=== PATIENT | female | born 1960 | race Caucasian/White ===

== ENCOUNTER 2018-08-05 06:31 | Day surgery (SDC) | payer OTHER ==
[2018-08-04 15:33] VITALS: BMI 37.4
[2018-08-05] MEDS ORDERED: PROPOFOL 20 ML ONE ×2 (07:00→10:47)
[2018-08-05] MEDS ORDERED: fentaNYL CITRATE 250 MCG/5 ML VIAL ONE (07:00)
[2018-08-05] MEDS ORDERED: SUCCINYLCHOLINE CHLORIDE 200 MG/10 ML VIAL ONE (07:01)
[2018-08-05] MEDS ORDERED: LIDOCAINE HCL/PF 2% SDV 5ML VIAL ONE (07:01)
[2018-08-05] MEDS ORDERED: DEXAMETHASONE SOD PHOSPHATE 4 MG/1 ML VIAL ONE (07:01)
[2018-08-05] MEDS ORDERED: ROCURONIUM BROMIDE 50 MG/5 ML VIAL ONE ×2 (07:01→10:13)
[2018-08-05] MEDS ORDERED: GENTAMICIN SO4 80 MG/2 ML VIAL ONE (07:31)
[2018-08-05] MEDS ORDERED: DEXAMETHASONE SOD PHOSPHATE/PF 10 MG/ML SDV ONE (07:41)
[2018-08-05] MEDS ORDERED: BUPIVACAINE HCL/PF 0.25% (2.5MG/ML) 10 ML VIAL ONE (07:41)
[2018-08-05] MEDS ORDERED: ROPIVACAINE HCL 0.5% 30ML VIAL ONE (07:42)
[2018-08-05] MEDS ORDERED: MIDAZOLAM HCL 2 MG/2 ML SINGLE DOSE VIAL ONE ×2 (07:43)
--- NOTE | 2018-08-05 08:43 | HP ---
Satellite [facility] - Chief Complaint Chief Complaint: Morbid obesity History Source: Patient Limitations to Obtaining History: No Limitations - Past Medical History Allergies/Adverse Reactions: Allergies Allergy/AdvReac Type Severity Reaction Status Date / Time No Known Allergies Allergy Verified 08/05/18 07:11 Pulmonary: Yes: Sleep Apnea ...LMP: 02/15/16 - Current Medications Current Medications: Home Medications Medication Instructions Recorded Levothyroxine [Synthroid -] 75 mcg PO DAILY 08/04/18 Satellite Physical Exam - Physical Examination Vital Signs: Vital Signs Period Temp Pulse Resp BP Sys/Aden Pulse Ox Last 24 Hr 98.1 F 83 16 124/74 97 General Appearance: Well Nourished, Well Developed Lung: Clear to auscultation Heart: Regular rate & rhythm Abdomen: Soft Neurological: Alert, Oriented Satellite Impression/Plan - Impression/Plan Impression: Morbid obesity, sleep apnea, BMI 37.4 Operative Procedure: Laparoscopic possible open gastric badn placement, EGD possible liver biopsy Date to be Performed: 08/05/18
[2018-08-05] MEDS ORDERED: ceFAZolin SODIUM 1 GM VIAL IVPB ONE ×2 (09:05→09:15)
[2018-08-05] MEDS ORDERED: ceFAZolin SODIUM 1 GM VIAL ONE (09:06)
[2018-08-05] MEDS ORDERED: SODIUM CHLORIDE 0.9% P/F 10 ML VIAL IJ ONE (09:11)
[2018-08-05] MEDS ORDERED: BUPIVACAINE HCL/PF 0.25% (2.5MG/ML) 10 ML VIAL IJ ONE ×2 (10:30→10:45)
[2018-08-05] MEDS ORDERED: PHENYLEPHRINE HCL 10 MG/1 ML SINGLE DOSE VIAL ONE (10:43)
[2018-08-05] MEDS ORDERED: NEOSTIGMINE METHYLSULFATE 0.5 MG/ML - 10 ML MDV ONE (10:45)
[2018-08-05] MEDS ORDERED: GLYCOPYRROLATE 0.2 MG/1 ML VIAL ONE (10:46)
[2018-08-05] MEDS ORDERED: ONDANSETRON 4 MG/2 ML VIAL IVPUSH PRN (10:53)
--- NOTE | 2018-08-05 10:53 | OP ---
Operative Note - Note: Operative Date: 08/05/18 Pre-Operative Diagnosis: Morbid obesity. BMI 37.4. Obstructive sleep apnea Operation: Laparoscopic gastric band placement, wedge liver biopsy, EGD Implants: Large AP Lap Band Post-Operative Diagnosis: Other (Same as preop as well as hepatomegaly) Surgeon: Max Davis Warp Worker: Liz Powell Anesthesia: General Specimens Removed: Wedge liver biopsy Estimated Blood Loss (mls): 30 Drains & Tubes with Location: OGT Operative Report Dictated: Yes
[2018-08-05] MEDS ORDERED: SODIUM CHLORIDE 1,000 ML IV SCH (11:00)
--- NOTE | 2018-08-05 11:38 | SPEC ---
DATE OF OPERATION: 08/05/2018 SURGEON: Max Davis MD BUYER GRAIN: GWYN Edmonds PREOPERATIVE DIAGNOSES: 1. Morbid obesity. 2. Body mass index 37.4. 3. Obstructive sleep apnea. POSTOPERATIVE DIAGNOSES: 1. Morbid obesity. 2. Body mass index 37.4. 3. Obstructive sleep apnea. 4. Hepatomegaly. PROCEDURE: 1. Diagnostic laparoscopy. 2. Laparoscopic placement of gastric band. 3. Laparoscopic wedge liver biopsy. 4. Upper endoscopy/esophagogastroduodenoscopy. SPECIMEN: Liver biopsy. ESTIMATED BLOOD LOSS: 30 mL DRAINS: None. ANESTHESIA: General endotracheal. OG tube placed by Anesthesia. Large lap AP band placed. REASON FOR PROCEDURE: This is a 57-year-old female who presents for weight loss options. After describing different options, she decided to proceed with laparoscopic gastric band placement, possible liver biopsy and possible endoscopy. The risks and benefits of the procedure were explained. RISKS AND BENEFITS: After describing the different options for weight loss management, the patient decided to proceed with a laparoscopic, possible open, gastric band placement for gastric restriction. The patient was seen by the respective subspecialties and cleared for surgery. The risks and benefits of the procedure were explained. These included bleeding, infection, hernia, NH, DVT, PE, injury to surrounding structures including the liver, colon, bowel, spleen, esophagus, vessel injury, nerve injury, weight regain, obstruction, gastric band slip, gastric band erosion, port site slip, port site infection, vitamin deficiency, hair loss, and as some of the possible complications. The patient understood and signed informed consent. DESCRIPTION OF PROCEDURE: The patient was placed supine on the operating room table. The patient underwent general endotracheal intubation. The arms were brought out at 90 degrees and secured. A footboard was placed and the legs were secured laterally with padding. The abdomen was prepped and draped in the usual sterile fashion. A time-out was performed. An incision was made in the left upper quadrant and a Veress needle inserted. Pneumoperitoneum was established. The Veress needle was then removed and a 5-mm trocar inserted. Inspection of the abdominal cavity was then performed with the laparoscopic camera. Subsequently, in the right upper quadrant to the right of midline, a 15-mm trocar was inserted under direct visualization. A 5-mm trocar was placed further laterally in the right upper quadrant and a 5-mm trocar placed below the left costal margin. A stab wound was made in the subxiphoid area and a Dahlia clamp inserted and removed to dilate the tract. A Nhi liver retractor was inserted. The post was secured at the bedside by the nursing staff. The patient was placed in steep reverse Trendelenburg position, and the Nhi liver retractor was used to secure the liver towards the anterior abdominal wall. The fundus of the stomach was noted and grasped towards the patient's right side and caudad. The omentum was also retracted downward as well. Electrocautery was used to score the peritoneum over the left esophagogastric junction freeing this area until the left manjit of the diaphragm was noted. The stomach was then pulled laterally to the patients left side, and the caudate lobe of the liver was identified. The pars flaccida was identified, and an opening created within it. The right manjit of the diaphragm was noted. The caudate lobe of the liver was retracted, and the inferior vena cava was noted to be away from the field. The peritoneum anterior to the right manjit was scored with electrocautery, and a laparoscopic dissector was used to gently make a tunnel from the right to the left manjit until it was free in the left upper quadrant of the abdomen. The gastric band was then chosen and prepped by the mechanical manufacturing technician. This was then placed within the abdominal cavity. The band tubing was placed into the laparoscopic dissector, which was pulled and withdrawn to the patients right side. The band tubing was placed within the band buckle and secured, securing the band around the stomach. The band was noted to be in good position and not too tight around the stomach. The stomach was then imbricated over the band. An Endo Stitch was used to grab the body of the stomach and secure it to itself, imbricating the stomach over the band. Hemostasis was noted. The band tubing was then brought out of the 15-mm trocar. In addition, an upper endoscopy was performed. The endoscope was placed into the patients mouth. The entirety of the esophagus, GE junction and stomach were inspected. No obstruction or leak was noted. The stomach was suctioned and the endoscope removed fully intact. A wedge liver biopsy was then performed. The left lobe of the liver was identified. A portion of the edge of the left lobe of the liver was grasped. Using electrocautery, a wedge of the left liver was excised. The specimen was removed and sent off the field. Hemostasis of the wedge liver biopsy site was attained and noted using electrocautery. The Nhi liver retractor was removed under direct visualization. Pneumoperitoneum was desufflated and all trocars removed. The skin at the 15-mm trocar site was extended, and dissection continued until the anterior fascia was identified. Four 2-0 Prolene sutures were placed in the fascia. The end of the band tubing was cut and removed and sent off the field. The port was secured to the band tubing. The port was secured to the fascia using the four 2-0 Prolene sutures. Hemostasis was again noted. Antibiotic irrigation was placed within all incision sites and Marcaine was injected at all incision sites. A 3-0 Vicryl suture was used to close the deep subcutaneous tissue at this area, and 4-0 Biosyn sutures were used to close all incision sites. Sterile dressings were applied. The patient tolerated the procedure well and was transferred to the recovery room in stable condition. In addition, an upper endoscopy was performed to evaluate the stomach. No leak , no obstruction was noted. The stomach was suctioned and the scope removed. Patient tolerated the procedure well, returned to the recovery room in stable condition. Jyoti [id number] MTDD
[2018-08-05 11:55] LABS: HEMATOCRIT 39.8 % (32.4-45.2); HEMOGLOBIN 13.1 GM/dL (10.7-15.3); MCH 28.3 pg (25.7-33.7); MCHC 32.9 g/dl (32.0-36.0); MEAN CELL VOLUME 85.9 fl (80-96); MEAN PLT VOLUME 8.7 fl (7.5-11.1); PLATELET COUNT 168 K/MM3 (134-434); RBC 4.64 M/mm3 (3.60-5.2); RDW 13.6 % (11.6-15.6); WHITE BLOOD COUNT 5.4 K/mm3 (4.0-10.0)
[2018-08-05 12:30] LABS: ANION GAP 6 MMOL/L (8-16); BLOOD UREA NITROGEN 12 mg/dL (7-18); CALCIUM 8.4 mg/dL (8.5-10.1); CHLORIDE 107 mmol/L (98-107); CO2 27 mmol/L (21-32); CREATININE 0.8 mg/dL (0.55-1.3); GLUCOSE,RANDOM 165 mg/dL (74-106); SODIUM 140 mmol/L (136-145)
[2018-08-05] MEDS ORDERED: HYDROmorphone HCl 2 MG/ML VIAL IVPB PRN (13:07)
[2018-08-05] MEDS ORDERED: HYDROmorphone HCl 2 MG/ML VIAL ONE (13:10)
[2018-08-05] MEDS ORDERED: HYDROmorphone HCl 2 MG/ML VIAL IVPUSH ONE (13:15)
[2018-08-05] MEDS ORDERED: ENOXAPARIN NA (PORCINE) 40 MG/0.4 ML DISP.SYRIN SQ ONE (14:00)
[2018-08-05] MEDS: SODIUM CHLORIDE 1,000 ML IV SCH (17:50)
[2018-08-05] MEDS: oxyCODONE HCL 5 MG TABLET PO SCH ×2 (19:49→22:30)
[2018-08-05] MEDS: ACETAMINOPHEN 325 MG TABLET (FP) PO SCH ×2 (19:50→22:30)
[2018-08-05] MEDS: FAMOTIDINE 20 MG/50 ML IVPB 20 MG/50 ML MG IVPB SCH (21:44)
[2018-08-06] MEDS ORDERED: ACETAMINOPHEN 325 MG TABLET (FP) PO ONE (00:30)
[2018-08-06] MEDS ORDERED: oxyCODONE HCL 5 MG TABLET PO ONE (00:30)
[2018-08-06] MEDS: SODIUM CHLORIDE 1,000 ML IV SCH (04:07)
[2018-08-06] MEDS: oxyCODONE HCL 5 MG TABLET PO SCH ×3 (04:56→10:23)
[2018-08-06] MEDS: ACETAMINOPHEN 325 MG TABLET (FP) PO SCH ×3 (04:56→10:24)
[2018-08-06] MEDS ORDERED: LEVOTHYROXINE NA 75 MCG TABLET (FP) PO SCH (07:00)
--- NOTE | 2018-08-06 07:24 | SURG ---
Surgery Foreman Or Supervisor And Operator Note Foreman Or Supervisor And Operator: Liz Powell PA-C Date of Service: 08/06/18 Diagnosis: Morbid obesity. BMI 37.4. Obstructive sleep apnea Procedure: Laparoscopic gastric band placement, wedge liver biopsy, EGD I was present for the entirety of the operative procedure. For further detail, please refer to operative report. Visit type - Case Type Case Type: Scheduled - Emergency Emergency Visit: No - New patient This patient is new to me today: Yes Date on this admission: 08/05/18
--- NOTE | 2018-08-06 09:11 | PN ---
Progress Note (short form) - Note Progress Note: 57yo F s/p lap band placement POD #1, pt seen and examined at bedside. Pt complains of abd pain and gas pain, but that it is improved with pain medications. Pt states that she is tolerating her clears. Pt ambulating and urinating well. Last Vital Signs Temp Pulse Resp BP Pulse Ox 98.3 F 85 20 132/75 93 L 08/06/18 05:00 08/06/18 05:00 08/06/18 05:00 08/06/18 05:00 08/05/18 23:22 CBC, BMP 08/05/18 11:30 08/05/18 11:30 PE: Gen: A&O x3 Resp: breathing comfortably Abd: soft, nondistended, mild tenderness, incisions are clean with no erythema or discharge. Ext: no edema <Parker Perea - Last Filed: 08/06/18 08:38> - Note Progress Note: POD 1 Lap Gastric band placement Pain controlled No nausea UGI: no leak/obstruction Tolerating clears Abd soft, dressings intact Discharge home Follow up in 2 weeks <Max Davis - Last Filed: 08/06/18 10:12> Problem List - Problems (1) Morbid obesity due to excess calories Assessment/Plan: Plan -continue pain management -bariatric diet -OOB/ambulate -DVT ppx -will consider discharge later today Code(s): E66.01 - MORBID (SEVERE) OBESITY DUE TO EXCESS CALORIES <Parker Perea - Last Filed: 08/06/18 08:38>
[2018-08-06] MEDS: FAMOTIDINE 20 MG/50 ML IVPB 20 MG/50 ML MG IVPB SCH (10:23)
[2018-08-06 10:28] VITALS: BP 115/52; PULSE 84; TEMP 87.6
--- NOTE | 2018-08-07 09:36 | PATH ---
Surgical Pathology Report Patient Name: DANIEL ALLRED Med. Rec. #: [id number] /Age/Gender: 1960 (Age: 57) / F Account: [id number] Location: AMBULATORY SURG Taken: 08/05/2018 Received: 08/05/2018 Reported: 08/07/2018 Physicians: Max Davis M.D. Specimen(s) Received LIVER BIOPSY Clinical History Morbid obesity Final Diagnosis LIVER, BIOPSY: MODERATE STEATOSIS (~40%), CONSISTENT WITH FATTY LIVER DISEASE. TRICHROME STAIN SHOWS NO SIGNIFICANT FIBROSIS. IRON STAIN IS NEGATIVE FOR SIDEROSIS. SEE COMMENT. Comment: Histologic sections shows patchy moderate micro and macrovesicular steatosis (~40%). Fatty liver may be associated with diabetes mellitus, metabolic syndromes, obesity, medications, alcohol use, etc. Suggest clinical and laboratory correlation. Electronically Signed Brooklynn Sullivan M.D. Gross Description Received in formalin labeled "liver biopsy," is a 3.0 x 1.7 x 0.6 cm chase portion of soft tissue, consistent with a portion of liver. The specimen is sectioned and insurance claims representative sections are submitted in one cassette. saudi/08/05/2018
== END 2018-08-06 14:04 | disposition home or self-care (01) ==
LOC: JASU-SURG 06:31 → JASUSAT 06:31 → J5S 15:05 → JASUSAT 08-06 14:04
PROVIDERS: ATTEND Surgery
PROC: 0DV64CZ Restriction of Stomach with Extraluminal Device, Percutaneous Endoscopic Approach (ICD-10-PCS; principal; 2018-08-05 08:30)
PROC: 0DJ08ZZ Inspection of Upper Intestinal Tract, Via Natural or Artificial Opening Endoscopic (ICD-10-PCS; 2018-08-05 08:30)
PROC: 0FB04ZX Excision of Liver, Percutaneous Endoscopic Approach, Diagnostic (ICD-10-PCS; 2018-08-05 08:30)
DX: E66.01 Morbid (severe) obesity due to excess calories (principal); Z68.37 Body mass index [BMI] 37.0-37.9, adult; G47.33 Obstructive sleep apnea (adult) (pediatric)
CPT/HCPCS: 43770; 47379; L8699; 36415; 74241-TC-FY; 80048; 85027; 86850; 86900; 86901; 88307-TC; 88313-TC; 94010; 94760; J7030

== ENCOUNTER 2019-02-19 18:54 | Emergency (ER) | payer OTHER ==
[2019-02-19 19:11] VITALS: BP 136/75; PULSE 85; TEMP 98; BMI 34.3
--- NOTE | 2019-02-19 19:15 | PDOC ---
Rapid Medical Evaluation Chief Complaint: Lightheaded Time Seen by Provider: 02/19/19 19:10 Medical Evaluation: Allergies Allergy/AdvReac Type Severity Reaction Status Date / Time No Known Allergies Allergy Verified 02/19/19 19:11 Vital Signs Temp Pulse Resp BP Pulse Ox 98.0 F 85 16 136/75 97 02/19/19 19:07 02/19/19 19:07 02/19/19 19:07 02/19/19 19:07 02/19/19 19:07 02/19/19 19:12 I have performed a brief in-person evaluation of this patient. The patient presents with a chief complaint of: h/o gastric band in last july present with complains of intermittent epigastric discomfort which has been going on for weeks now but started having dizziness and blurry vision an hour ago. Denies LOC, syncope, CP, SOB Pertinent physical exam findings: A&O x 3 in NAD. heart RRR I have ordered the following: CBC, CMP, EKG, cardiac profle The patient will proceed to the ED for further evaluation. Discharge Disposition - Diagnosis Light headedness - Discharge Dispostion Condition at time of disposition: Stable - Referrals - Patient Instructions - Post Discharge Activity
[2019-02-19] MEDS ORDERED: SODIUM CHLORIDE 1,000 ML IV STA (19:35)
--- NOTE | 2019-02-19 19:44 | PDOC ---
History of Present Illness - General Chief Complaint: Lightheaded Stated Complaint: LIGHTHEADED Time Seen by Provider: 02/19/19 19:10 - History of Present Illness Initial Comments: 02/19/19 20:18 The patient is a 58 year old female with a history of hypothyroidism, obesity who presents for evaluation of lightheadedness. The patient notes that she had a gastric band placed in 07/2018 and has been having fluid added to the band minimally since then. However 3 weeks ago she states that her surgeon added more fluid than usual per the patient's request. She notes that since then, she has been eating significantly less and today began feeling lightheaded when standing prompting her presentation to the ED for further evaluation. She notes a strange sensation in her epigastrium where the gastic band is located, but otherwise denies fevers, chills, SOB, chest pain, nausea, vomiting, abdominal pain, or changes with urination or bowel movements. Past History - Past Medical History Allergies/Adverse Reactions: Allergies Allergy/AdvReac Type Severity Reaction Status Date / Time No Known Allergies Allergy Verified 02/19/19 19:11 Home Medications: Ambulatory Orders Levothyroxine [Synthroid -] 75 mcg PO DAILY 08/04/18 Docusate Sodium [Colace -] 100 mg PO TID #90 capsule 08/05/18 Famotidine [Pepcid] 20 mg PO BID #60 tablet 08/05/18 Oxycodone HCl/Acetaminophen [Percocet 5-325 mg Tablet] 1 - 2 tab PO Q6H #28 tab MDD 4 08/05/18 COPD: No - Surgical History Abdominal Surgery: Yes (LAP BAND JUL 2019) - Suicide/Smoking/Psychosocial Hx Smoking History: Never smoked Have you smoked in the past 12 months: No If you are a former smoker, when did you quit?: 1994 Hx Alcohol Use: No Drug/Substance Use Hx: No Substance Use Type: None Hx Substance Use Treatment: No Review of Systems - Review of Systems Comments:: 02/19/19 20:23 Constitutional: No fevers, chills, fatigue, malaise HEENT: No Rhinorrhea, nasal congestion, visual changes Cardiovascular: Lightheadedness. No chest pain, syncope, palpitations, Respiratory: No Cough, SOB, Hemoptysis, Gastrointestinal: No Abdominal pain, Nausea, Vomiting, Constipation, Diarrhea, Melena Genitourinary: No Dysuria, Frequency, Urgency, Hesitancy, Hematuria, Flank pain Musculoskeletal: No Myalgia, arthralgia Skin: No rashes, itching, bruising, pallor Neurologic: No Headache, Dizziness, Numbness, Weakness, or Tingling Psychiatric: No Hallucinations. No SI or HI *Physical Exam - Vital Signs Last Vital Signs Temp Pulse Resp BP Pulse Ox 98.0 F 85 16 136/75 97 02/19/19 19:07 02/19/19 19:07 02/19/19 19:07 02/19/19 19:07 02/19/19 19:07 - Physical Exam Comments: 02/19/19 20:24 General Appearance: Nourished. No Apparent Distress HEENT: EOMI, MICHAEL. No Pharyngeal Erythema, Tonsillar Exudate, Tonsillar Erythema Neck: No Cervical Lymphadenopathy Respiratory/Chest: Lungs Clear, Normal Breath Sounds. No Crackles, Rales, Rhonchi, Wheezing Cardiovascular: Regular Rhythm, Regular Rate. No Murmur, Gallops, Rubs Gastrointestinal/Abdominal: Normal Bowel Sounds, Soft. No Guarding, Rebound, Tenderness Musculoskeletal: No CVA Tenderness Extremity: Normal Capillary Refill Integumentary: Normal Color, Dry, Warm Neurologic: Fully Oriented, Alert, Normal Mood/Affect, Normal Response, Heart Score/ECG Review #1 ECG reviewed & interpreted by me at: 20:26 02/19/19 20:26 Normal Sinus Rhythm No Acute ST Changes HR 72 QRS 86 QTc 446 ED Treatment Course - LABORATORY CBC & Chemistry Diagram: 02/19/19 19:45 02/19/19 19:45 Medical Decision Making - Medical Decision Making 02/19/19 20:27 The patient is a 58 year old female with a history of hypothyroidism, obesity who presents for evaluation of lightheadedness. Given the patient's history and physical, it is likely the patient's symptoms are due to dehydration from her gastric band being over inflated. However, we will obtain a cbc, cmp, troponin, mag, lipase, ekg to evaluate further. We will treat with iv fluids, pepcid, and continue to monitor and reassess while here in the ED. 02/19/19 21:34 CBC, cmp, troponin, mag, lipase are unremarkable. The patient was reassessed and reports improvement in their symptoms. We discussed the case with the patient's surgeon Dr. Davis who is aware of the patient with will follow up with her tomorrow to remove fluid from the patient's gastric band. We are comfortable discharging the patient home in stable condition. Patient and family made aware of impression and plan, return precautions discussed including but not limited to worsening pain or symptoms, fevers, or signs of infection, chest pain, respiratory distress, inability to tolerate oral intake, dehydration, syncope, or neurologic changes. The patient is to follow up with PMD and specialist as recommended within 1 week, follow up information provided and the patient will call for an appointment. The patient is to take medications as instructed for duration of time and continue with supportive care , avoid triggers and precipitants. Patient is safe for outpatient follow-up. *DC/Admit/Observation/Transfer Diagnosis at time of Disposition: Light headedness - Discharge Dispostion Disposition: HOME Condition at time of disposition: Stable - Referrals Referrals: Sylvia Reynoso MD [Primary Care Provider] - Max Davis MD [Staff Physician] - - Patient Instructions Printed Discharge Instructions: DI for Dehydration -- Adult Additional Instructions: 1) Please follow-up with your primary care doctor in the next 2-3 days. Please call tomorrow to schedule a follow up appointment. If you cannot follow up with your doctor within 1 week please return to the Emergency Department for any urgent issues. 2) Your laboratory / EKG results were normal here in the ER. You are to follow up with Dr. Davis tomorrow to have your Gastric Band Adjusted. 3) If you have any worsening of symptoms or any other concerns please return to the ER immediately. Return if worsening symptoms including fevers, headache, vomiting, visual or hearing disturbances, abdominal pain, chest pain, shortness of breath, syncope, dehydration, inability to take things by mouth/vomiting, altered mental status, or worsening concerning symptoms. 4) Please continue taking your home medications as directed. - Post Discharge Activity
[2019-02-19] MEDS ORDERED: FOLIC ACID INJECTION - 1 MG, THIAMINE HCL 100 MG, MULTIVIT INJECTION ADULT 10 ML in SOD... IVPB ONE (20:11)
[2019-02-19 20:13] LABS: BASO % 1.1 % (0-2.0); EOS % 2.9 % (0-4.5); HEMATOCRIT 38.5 % (32.4-45.2); HEMOGLOBIN 12.7 GM/dL (10.7-15.3); LYMPH % 33.3 % (8-40); MCH 28.5 pg (25.7-33.7); MEAN CELL VOLUME 86.3 fl (80-96); MEAN PLT VOLUME 8.5 fl (7.5-11.1); MONO % 7.2 % (3.8-10.2); NEUT % 55.5 % (42.8-82.8); PLATELET COUNT 187 K/MM3 (134-434); RBC 4.46 M/mm3 (3.60-5.2); RDW 13.5 % (11.6-15.6); WHITE BLOOD COUNT 4.3 K/mm3 (4.0-10.0)
[2019-02-19] MEDS ORDERED: FAMOTIDINE 20 MG/50 ML IVPB 20 MG/50 ML MG IVPB ONE ×2 (20:30)
[2019-02-19 20:42] LABS: ALBUMIN 4.1 g/dl (3.4-5.0); ALK PHOS 74 U/L (45-117); ANION GAP 6 MMOL/L (8-16); BILIRUBIN,TOTAL 0.4 mg/dL (0.2-1); BLOOD UREA NITROGEN 12 mg/dL (7-18); CALCIUM 9.2 mg/dL (8.5-10.1); CHLORIDE 108 mmol/L (98-107); CO2 27 mmol/L (21-32); CREATININE 0.9 mg/dL (0.55-1.3); GLUCOSE,RANDOM 94 mg/dL (74-106); LIPASE 371 U/L (73-393); MAGNESIUM 2.3 mg/dL (1.8-2.4); POTASSIUM 4.2 mmol/L (3.5-5.1); SGOT/AST 13 U/L (15-37); SGPT/ALT 25 U/L (13-61); SODIUM 141 mmol/L (136-145); TOT PROT 7.1 g/dl (6.4-8.2)
--- NOTE | 2019-02-19 20:48 | PDOC ---
Documentation entered by Blanca Bonilla SCRIBE, acting as scribe for Sonia Dc DO. Sonia Dc DO: This documentation has been prepared by the Chad saucedo Daisy, SCRIBE, under my direction and personally reviewed by me in its entirety. I confirm that the documentation accurately reflects all work, treatment, procedures, and medical decision making performed by me. Attending Attestation - Resident Resident Name: Florentin Meeks - ED Attending Attestation I have performed the following: I have examined & evaluated the patient, The case was reviewed & discussed with the resident, I agree w/resident's findings & plan - HPI HPI: 02/19/19 20:13 The patient is a 58YOF with a history of gastric lap band in July who presents today for intermittent epigastric pain and 1-2 episodes of NB,NB vomit daily for the past [address] Davis, reports that 3 weeks ago he added fluid to the gastric lap band to improve results, but the patient admits to intermittent epigastric pain since. Dr. Davis will see her in his office soon to remove some of the fluid. Denies CP, SOB, LOC, urinary symptoms, or changes in bowel movements. Allergies: NKDA - Physicial Exam PE: 02/19/19 20:35 ADULT PHYSICAL EXAM Constitutional: Awake, alert, oriented. Cardiovascular: Regular rate. Regular rhythm. S1, S2 regular. Distal pulses are 2+ and symmetric. Pulmonary/Chest: No evidence of respiratory distress. Clear to auscultation bilaterally No wheezing, rales or rhonchi. Abdominal: Soft and non-distended. (+) mildly tender over the lap band incision site. Musculoskeletal: No edema. Full range of motion in all extremities. No calf tenderness. Skin: Skin is warm and dry. Neurological: Alert and oriented to person, place, and time. Cranial nerves II -XII are grossly intact. - Medical Decision Making 02/19/19 20:45 I, Dr. Sonia Dc DO, attest that this document has been prepared under my direction and personally reviewed by me in its entirety. I further attest, that it accurately reflects all work, treatment, procedures and medical decision -making performed by me. 02/19/19 20:45 a/p: 58yo female with gastric band surgery by Dr. Davis in July who had the band inflated 3 weeks ago -since inflation has had n/v daily and decreased po intake -pt c/o dizziness recently -concern for electrolyte abnl and dehydration -will send labs, ivf hydration -no cp/sob -pt is nontoxic in appearance -mild ttp over the band, but no peritonitic or acute abd pain -states has had pain over the band since surgery as under surgical incision site -will monitor and reassess 02/19/19 21:42 labs reviewed pt tolerated po will follow up with Dr. Davis in the AM for decreasing gastric band resident discussed labs with Dr. Davis stable for dc to home Heart Score/ECG Review - ECG Intrepretation Comment:: 02/19/19 20:47 sinus at 72, 1st degree av block, nl axis, nl interval no acute st/t wave findings
--- NOTE | 2019-02-20 14:56 | EKG ---
Test Reason : Blood Pressure : / mmHG Vent. Rate : 072 BPM Atrial Rate : 072 BPM P-R Int : 200 ms QRS Dur : 086 ms QT Int : 408 ms P-R-T Axes : 041 026 034 degrees QTc Int : 446 ms NORMAL SINUS RHYTHM SEPTAL INFARCT , AGE UNDETERMINED ABNORMAL ECG WHEN COMPARED WITH ECG OF 27-AUG-2005 01:33, SEPTAL INFARCT IS NOW PRESENT Confirmed by JUAN PICKARD MD ([id number]) on 02/20/2019 2:55:49 PM Referred By: Confirmed By:JUAN PICKARD MD
== END 2019-02-19 21:54 | disposition home or self-care (01) ==
LOC: JER 18:54
DX: R42 Dizziness and giddiness (principal); E03.9 Hypothyroidism, unspecified; E66.9 Obesity, unspecified; Z68.34 Body mass index [BMI] 34.0-34.9, adult; Z98.84 Bariatric surgery status
CPT/HCPCS: 36415; 80053; 82550; 83690; 83735; 84484; 85025; 93005; 93010; 99283-25; J7030

== ENCOUNTER 2020-11-14 06:08 | Day surgery (SDC) | payer OTHER ==
[2020-11-08 12:58] VITALS: BMI 31.7
[2020-11-14] MEDS ORDERED: LIDOCAINE HCL/PF 2% SDV 5ML VIAL ONE (07:32)
[2020-11-14] MEDS ORDERED: ceFAZolin SODIUM 1 GM VIAL ONE (07:32)
[2020-11-14] MEDS ORDERED: DEXAMETHASONE SOD PHOSPHATE 4 MG/1 ML VIAL ONE (07:32)
[2020-11-14] MEDS ORDERED: ONDANSETRON 4 MG/2 ML VIAL ONE ×2 (07:32→10:05)
[2020-11-14] MEDS ORDERED: BUPIVACAINE HCL/PF 0.25% (2.5MG/ML) 10 ML VIAL ONE (07:32)
[2020-11-14] MEDS ORDERED: fentaNYL CITRATE 250 MCG/5 ML VIAL ONE (07:33)
[2020-11-14] MEDS ORDERED: ROCURONIUM BROMIDE 50 MG/5 ML SYRINGE ONE (07:33)
[2020-11-14] MEDS ORDERED: MIDAZOLAM HCL 2 MG/2 ML SINGLE DOSE VIAL ONE (07:33)
[2020-11-14] MEDS ORDERED: PROPOFOL 20 ML ONE ×2 (07:34)
[2020-11-14] MEDS ORDERED: SUCCINYLCHOLINE CHLORIDE 200 MG/10 ML SYRINGE ONE ×2 (07:34→09:56)
[2020-11-14] MEDS ORDERED: GLYCOPYRROLATE 0.2 MG/1 ML VIAL ONE ×2 (07:38→08:40)
[2020-11-14] MEDS ORDERED: NEOSTIGMINE METHYLSULFATE 0.5 MG/1 ML - 10 ML MDV ONE (08:40)
[2020-11-14] MEDS ORDERED: ONDANSETRON 4 MG/2 ML VIAL IVPUSH PRN ×2 (08:51→09:37)
[2020-11-14] MEDS ORDERED: LACTATED RINGERS SOLUTION 1,000 ML IV SCH (09:00)
[2020-11-14] MEDS ORDERED: BUPIVACAINE HCL/PF 0.25% (2.5MG/ML) 10 ML VIAL IJ ONE ×2 (09:01→09:22)
[2020-11-14] MEDS ORDERED: oxyCODONE HCL 5 MG TABLET PO PRN (09:37)
[2020-11-14] MEDS ORDERED: SODIUM CHLORIDE 1,000 ML IV SCH (09:45)
[2020-11-14] MEDS ORDERED: FAMOTIDINE 20 MG/50 ML IVPB 20 MG/50 ML MG IVPB SCH (10:00)
[2020-11-14] MEDS ORDERED: LEVOTHYROXINE NA 75 MCG TABLET (FP) PO SCH (10:00)
[2020-11-14 10:40] LABS: CALCIUM 8.4 mg/dl (8.5-10); CREATININE 0.7 mg/dl (0.55-1.3); HEMATOCRIT 37.6 % (32.4-45.2); HEMOGLOBIN 12.2 GM/dl (10.7-15.3); MCH 28.5 pg (25.7-33.7); MCHC 32.5 g/dl (32.0-36.0); MEAN CELL VOLUME 87.9 fl (80-96); MEAN PLT VOLUME 8.9 fl (7.5-11.1); PLATELET COUNT 225 K/MM3 (134-434); POTASSIUM 4.7 mmol/L (3.5-5.1); RBC 4.27 M/mm3 (3.60-5.2); RDW 13.7 % (11.6-15.6)
[2020-11-14 10:58] VITALS: TEMP 98.1
[2020-11-14] MEDS ORDERED: LOCK ITEM NR ONE (11:00)
[2020-11-14] MEDS ORDERED: ENOXAPARIN NA (PORCINE) 40 MG/0.4 ML DISP.SYRIN SQ ONE ×2 (11:43→12:00)
[2020-11-14] MEDS ORDERED: FAMOTIDINE 20 MG/50 ML IVPB 20 MG/50 ML MG IVPB ONE (11:43)
[2020-11-14] MEDS ORDERED: FAMOTIDINE 20 MG PREMIXED IVPB IVPB ONE (11:45)
[2020-11-14] MEDS ORDERED: oxyCODONE HCL 5 MG TABLET ONE (11:50)
[2020-11-14 12:03] VITALS: PULSE 64
[2020-11-14 12:24] VITALS: BP 128/75
== END 2020-11-14 13:40 | disposition home or self-care (01) ==
LOC: FASU 06:08 → EDSTATUS 08:00 → FASU 13:40
PROVIDERS: ATTEND Surgery
PROC: 0DP64YZ Removal of Other Device from Stomach, Percutaneous Endoscopic Approach (ICD-10-PCS; principal; 2020-11-14 08:36)
DX: T85.848A Pain due to other internal prosthetic devices, implants and grafts, initial encounter (principal); R11.2 Nausea with vomiting, unspecified; K66.0 Peritoneal adhesions (postprocedural) (postinfection)
CPT/HCPCS: 36415; 80048; 85027; 94760

== ENCOUNTER 2023-10-07 14:32 | Emergency (ER) | payer OTHER ==
[2023-10-07 14:41] VITALS: BP 128/80; PULSE 67; RESP 18; TEMP 98; BMI 33.5
[2023-10-07 16:54] LABS: BASO % 1.2 % (0-2.0); HEMATOCRIT 40.2 % (32.4-45.2); HEMOGLOBIN 13.4 GM/dL (10.7-15.3); LYMPH % 29.2 % (8-40); MCH 28.7 pg (25.7-33.7); MCHC 33.4 g/dl (32.0-36.0); MEAN CELL VOLUME 86.1 fl (80-96); MEAN PLT VOLUME 7.9 fl (7.5-11.1); MONO % 6.3 % (3.8-10.2); NEUT % 60.3 % (42.8-82.8); PLATELET COUNT 220 10^3/uL (134-434); RBC 4.67 M/mm3 (3.60-5.2); RDW 14.5 % (11.6-15.6); WHITE BLOOD COUNT 5.5 K/mm3 (4.0-10.0)
[2023-10-07 17:41] LABS: CALCIUM 9.2 mg/dL (8.5-10.1)
[2023-10-07 17:43] LABS: BLOOD UREA NITROGEN 15.5 mg/dL (7-18)
[2023-10-07 17:47] LABS: BILIRUBIN,TOTAL 0.6 mg/dL (0.2-1); TOT PROT 7.5 g/dl (6.4-8.2)
[2023-10-07 18:05] LABS: CREATININE 0.8 mg/dL (0.55-1.3)
== END 2023-10-07 19:32 | disposition home or self-care (01) ==
LOC: JER 14:32
DX: R07.9 Chest pain, unspecified (principal); R05.9 Cough, unspecified; Z20.822 Contact with and (suspected) exposure to COVID-19
CPT/HCPCS: 0241U-QW; 36415; 71046-TC-FY; 80053; 84484; 85025; 93005; 93010; 99285-25